=== PATIENT | female | born 1950 | race Caucasian/White ===

== ENCOUNTER → 2019-11-13 10:40 | Outpatient (BNVA) | payer MEDICARE, OTHER, SELFPAY | PROVIDERS: Family Provider Nurse Practitioner; PCP Internal Medicine; Visit Provider Nurse Practitioner | DX: M54.9 Dorsalgia, unspecified (principal); F43.21 Adjustment disorder with depressed mood; Z79.891 Long term (current) use of opiate analgesic | CPT/HCPCS: 99215 ==

== ENCOUNTER → 2020-03-05 11:13 | Outpatient (BNVA) | payer MEDICARE, OTHER, SELFPAY | PROVIDERS: Family Provider Nurse Practitioner; PCP Internal Medicine; Visit Provider Nurse Practitioner | DX: M54.41 Lumbago with sciatica, right side (principal); Z79.891 Long term (current) use of opiate analgesic | CPT/HCPCS: 99213 ==

== ENCOUNTER → 2020-05-07 10:53 | Outpatient (BNVA) | payer MEDICARE, OTHER, SELFPAY | PROVIDERS: Family Provider Nurse Practitioner; PCP Internal Medicine; Visit Provider Anesthesiology | DX: M54.41 Lumbago with sciatica, right side (principal); Z79.891 Long term (current) use of opiate analgesic | CPT/HCPCS: 99213; 99214 ==

== ENCOUNTER → 2020-07-08 10:56 | Outpatient (BNVA) | payer MEDICARE, OTHER, SELFPAY | PROVIDERS: Family Provider Nurse Practitioner; PCP Internal Medicine; Visit Provider Anesthesiology | DX: M54.5 Low back pain (principal); Z79.891 Long term (current) use of opiate analgesic | CPT/HCPCS: 99212; 99214 ==

== ENCOUNTER → 2020-09-03 09:54 | Outpatient (BNVA) | payer MEDICARE, OTHER, SELFPAY | PROVIDERS: Family Provider Nurse Practitioner; PCP Internal Medicine; Visit Provider Anesthesiology | DX: M54.41 Lumbago with sciatica, right side (principal); Z79.891 Long term (current) use of opiate analgesic | CPT/HCPCS: 99212; 99214 ==

== ENCOUNTER → 2020-12-02 10:26 | Outpatient (BNVA) | payer MEDICARE, OTHER, SELFPAY | PROVIDERS: Family Provider Nurse Practitioner; PCP Internal Medicine; Visit Provider Anesthesiology | DX: M51.36 Other intervertebral disc degeneration, lumbar region (principal); M51.34 Other intervertebral disc degeneration, thoracic region; Z79.891 Long term (current) use of opiate analgesic | CPT/HCPCS: 99213 ==

== ENCOUNTER → 2021-02-02 10:47 | Outpatient (BNVA) | payer MEDICARE, OTHER, SELFPAY | PROVIDERS: Family Provider Nurse Practitioner; PCP Internal Medicine; Visit Provider Nurse Practitioner | DX: M51.34 Other intervertebral disc degeneration, thoracic region (principal); M51.36 Other intervertebral disc degeneration, lumbar region; Z79.891 Long term (current) use of opiate analgesic | CPT/HCPCS: 99213 ==

== ENCOUNTER → 2021-04-01 10:04 | Outpatient (BNVA) | payer MEDICARE, OTHER, SELFPAY | PROVIDERS: Family Provider Nurse Practitioner; PCP Internal Medicine; Visit Provider Nurse Practitioner | DX: M51.36 Other intervertebral disc degeneration, lumbar region (principal); M51.34 Other intervertebral disc degeneration, thoracic region; Z79.891 Long term (current) use of opiate analgesic | CPT/HCPCS: 99213; 99214 ==

== ENCOUNTER → 2021-06-03 10:41 | Outpatient (BNVA) | payer MEDICARE, OTHER, SELFPAY | PROVIDERS: Family Provider Nurse Practitioner; PCP Internal Medicine; Visit Provider Anesthesiology | DX: M51.34 Other intervertebral disc degeneration, thoracic region (principal); M51.36 Other intervertebral disc degeneration, lumbar region; Z79.891 Long term (current) use of opiate analgesic | CPT/HCPCS: 99213 ==

== ENCOUNTER → 2021-06-15 10:24 | Outpatient (BNVA) | payer MEDICARE, OTHER, SELFPAY | PROVIDERS: PCP Internal Medicine; Visit Provider Family Medicine | DX: R05 Cough (principal); Z20.822 Contact with and (suspected) exposure to COVID-19 | CPT/HCPCS: 87635 ==

== ENCOUNTER → 2021-06-17 10:47 | Outpatient (BNVA) | payer MEDICARE, OTHER, SELFPAY | PROVIDERS: PCP Internal Medicine; Visit Provider Family Medicine | DX: R05 Cough (principal) | CPT/HCPCS: 71046 ==

== ENCOUNTER → 2021-06-22 11:07 | Outpatient (BNVA) | payer MEDICARE, OTHER, SELFPAY | PROVIDERS: PCP Internal Medicine; Visit Provider Nurse Practitioner Family | DX: J18.9 Pneumonia, unspecified organism (principal); B37.3 Candidiasis of vulva and vagina; A49.9 Bacterial infection, unspecified; N39.0 Urinary tract infection, site not specified | CPT/HCPCS: 81003 ==

== ENCOUNTER → 2021-06-23 11:07 | Outpatient (BNVA) | payer MEDICARE, OTHER, SELFPAY | PROVIDERS: PCP Internal Medicine; Visit Provider Nurse Practitioner Family | DX: A93.8 Other specified arthropod-borne viral fevers (principal); W57.XXXA Bitten or stung by nonvenomous insect and other nonvenomous arthropods, initial encounter | CPT/HCPCS: 86000; 86618; 86666; 86757 ==

== ENCOUNTER → 2021-07-01 14:17 | Outpatient (BNVA) | payer MEDICARE, OTHER, SELFPAY | PROVIDERS: PCP Nurse Practitioner Family; Visit Provider Nurse Practitioner Family | DX: N39.0 Urinary tract infection, site not specified (principal); A49.9 Bacterial infection, unspecified; I10 Essential (primary) hypertension; E11.9 Type 2 diabetes mellitus without complications; E53.8 Deficiency of other specified B group vitamins; E55.9 Vitamin D deficiency, unspecified; E78.2 Mixed hyperlipidemia; J30.89 Other allergic rhinitis; B37.3 Candidiasis of vulva and vagina | CPT/HCPCS: 80053; 80061; 81003; 82306; 83036; 83550; 83721; 83921; 84439; 84443; 85025; 87086 ==

== ENCOUNTER → 2021-07-30 10:39 | Outpatient (BNVA) | payer MEDICARE, OTHER, SELFPAY | PROVIDERS: PCP Internal Medicine; Visit Provider Anesthesiology | DX: G89.29 Other chronic pain (principal); M51.34 Other intervertebral disc degeneration, thoracic region; M51.36 Other intervertebral disc degeneration, lumbar region; Z79.891 Long term (current) use of opiate analgesic | CPT/HCPCS: 99213 ==

== ENCOUNTER → 2021-09-29 10:06 | Outpatient (BNVA) | payer MEDICARE, OTHER, SELFPAY | PROVIDERS: PCP Internal Medicine; Visit Provider Anesthesiology | DX: M51.34 Other intervertebral disc degeneration, thoracic region (principal); M51.36 Other intervertebral disc degeneration, lumbar region; Z79.891 Long term (current) use of opiate analgesic | CPT/HCPCS: 99213 ==

== ENCOUNTER 2022-03-09 10:29 | Outpatient (CLI) | payer MEDICARE, OTHER, SELFPAY ==
--- NOTE | 2022-03-09 10:46 | XR_ITS ---
WS: [id number] Exam: XR lumbar spine f/e only [id number] Date/Time of Exam: 03/09/2022 10:51 AM Reason For Exam: SPONDYLOLISHESIS,LUMBAR REGION No obvious fracture or dislocation. Advanced degenerative disc changes and facet arthropathy at all l evels. Marked spondylosis. No flexion or extension instability. Aortoiliac atherosclerosis. XR/XR lumbar spine f/e only [id number] IMPRESSION: 1. Advanced degenerative changes. No obvious fracture. 2. No flexion or extension instability.
== END 2022-03-09 10:30 | disposition home or self-care (01) ==
LOC: RAD 10:32
PROVIDERS: PCP Internal Medicine; Visit Provider Nurse Practitioner
DX: M43.16 Spondylolisthesis, lumbar region (principal)
CPT/HCPCS: 72120

== ENCOUNTER → 2022-12-19 16:07 | Outpatient (BNVA) | payer MEDICARE, OTHER, SELFPAY | PROVIDERS: PCP Internal Medicine; Visit Provider Nurse Practitioner | DX: A49.9 Bacterial infection, unspecified (principal); N39.0 Urinary tract infection, site not specified; E11.9 Type 2 diabetes mellitus without complications | CPT/HCPCS: 81000 ==

== ENCOUNTER → 2023-01-12 13:54 | Outpatient (BNVA) | payer MEDICARE, OTHER, SELFPAY | PROVIDERS: PCP Internal Medicine; Visit Provider Nurse Practitioner | DX: R39.9 Unspecified symptoms and signs involving the genitourinary system (principal) | CPT/HCPCS: 81000 ==

== ENCOUNTER → 2023-01-13 10:54 | Outpatient (BNVA) | payer MEDICARE, OTHER, SELFPAY | PROVIDERS: PCP Internal Medicine; Visit Provider Nurse Practitioner | DX: R39.9 Unspecified symptoms and signs involving the genitourinary system (principal) | CPT/HCPCS: 87086 ==

== ENCOUNTER 2023-03-20 21:08 | Emergency (ER) | payer MEDICARE, OTHER, SELFPAY ==
[2023-03-20 21:27] VITALS: BP 142/68; PULSE 88; RESP 16; TEMP 36.8; O2SAT 95
--- NOTE | 2023-03-20 21:50 | W.ED.SKABFB ---
HPI - Skin/Abscess/Foreign Bdy General: Chief complaint: Skin/Abscess/Foreign Body Stated complaint: Rt Leg Pain Time Seen by Provider: 03/20/23 21:43 History of Present Illness: 72-year-old female comes in today with lesion to the left lower leg. Patient reports it started as a bite approximately 2 days ago and today she noticed that it was more blistered with surrounding redness. Patient appears nontoxic. Patient is alert and oriented. Patient has a here history of diabetes mellitus, GERD, chronic pain, neuropathy, chronic lung disease. Associated symptoms: Deny vomiting Review of Systems General: Reports: 10 or more systems reviewed and unremarkable except in HPI and below Resp: Denies: dyspnea GI: Denies: vomiting Musc: Reports: extremity pain Skin/Breast: Reports: erythema PFSH ED PFSH: Medical History Acute sinusitis Anxiety Bacterial UTI DDD (degenerative disc disease), lumbar DDD (degenerative disc disease), thoracic Diabetes mellitus, type II Patient sees Dr. 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 Vaginal yeast infection Vitamin B12 deficiency (non anemic) Vitamin D deficiency Surgical History History of laparoscopy Right knee Hx of cholecystectomy Hx of tubal ligation Family History Unknown Diabetes Father Heart attack brother Sister Lung disease Social History Second hand smoke exposure: No Alcohol intake: never Desire information about alcohol rehabilitation?: No Counseling given: No Substance/Drug Use: never Desire information about substance/drug rehabilitation?: No Counseling given: No Physical Exam Const: COMMON NORMALS: alert HENMT: COMMON NORMALS: normocephalic HEAD & SCALP: normocephalic THROAT: posterior oropharynx normal Neck/C-Spine: COMMON NORMALS: full ROM Resp: COMMON NORMALS: normal respiratory effort and clear to auscultation bilaterally AUSCULTATION: clear to auscultation bilaterally Cardio: COMMON NORMALS: regular rate and regular rhythm RATE: regular rate RHYTHM: regular rhythm GI: COMMON NORMALS: non-tender Extremity: RIGHT LOWER EXTREMITY: Yes lower leg (11 cm area of redness with central 1 cm circular lesion) Neuro: SENSORIUM/ORIENTATION: Yes alert Course Vital Signs: Vital signs: Vital Signs Temperature 98.2 F 03/20/23 21:27 Pulse Rate 80 03/20/23 22:22 Respiratory Rate 18 03/20/23 22:22 Blood Pressure 171/75 03/20/23 22:22 Pulse Oximetry 93 03/20/23 22:22 Oxygen Delivery Me thod Room Air 03/20/23 21:27 MDM - Skin/Abscess/Foreign Bdy Medicial Decision Making 72-year-old female comes in today for complaints of possible infection to insect bite. On exam there is a circular lesion with a blister leaking purulent fluid to the right lower leg. Patient says lesions started 2 days ago. Patient does have significant redness surrounding the lesion approximately 10 cm. Differential diagnosis includes local reaction to insect bite, infected insect bite, cellulitis, ulcer of the varicose vein. Culture of the wound was taken and sent to lab. Patient be started on Levaquin 500 mg daily for the next 10 days. Patient was also given mupirocin ointment to apply to the lesion twice daily. Patient was recommended to follow-up with primary care in 3 to 5 days for recheck. Return to ED for worsening symptoms. Discharge Plan Discharge Patient Disposition: Home Clinical Impression: Infected lesion of skin Condition: Stable Prescriptions: New levofloxacin 500 mg tablet 500 mg PO DAILY 7 Days Qty: 7 0RF No Action diphenhydramine HCl 25 mg capsule 25 mg PO .1 day PRN aspirin 81 mg tablet,chewable 81 mg PO .1 day omeprazole 20 mg capsule,delayed release(DR/EC) 20 mg PO BID hydromorphone 8 mg tablet 8 mg PO QID PRN (Reason: pain) 30 Days Qty: 120 0RF Rx Instructions: Fill on or after 10/03/21 hydromorphone 8 mg tablet 8 mg PO QID PRN (Reason: pain) 30 Days Qty: 120 0RF Rx Instructions: fill on or after 11/02/21 ibuprofen 800 mg tablet PO TID PRN lisinopril 20 mg tablet PO DAILY metformin 500 mg tablet extended release 24 hr PO .2 bid atorvastatin 40 mg tablet PO DAILY gabapentin 600 mg tablet 600 mg PO QID cyanocobalamin (vitamin B-12) 1,000 mcg/mL solution 1,000 mcg IM .monthly fluticasone propion-salmeterol [Advair Diskus] 100-50 mcg/dose blister with device 1 inh inhalation BID Qty: 60 0RF Januvia 100 mg tablet See Rx Instructions .ROUTE .COMPLEX Qty: 30 1RF Dose Instruction: TAKE 1 TABLET BY MOUTH DAILY Rx Instructions: TAKE 1 TABLET BY MOUTH DAILY 340b sulfamethoxazole-trimethoprim [Bactrim DS] 800-160 mg tablet 1 tab PO BID 7 Days Qty: 14 0RF fluticasone propionate 50 mcg/actuation spray,suspension 2 spray intranasal DAILY PRN (Reason: allergy symptoms) Qty: 16 2RF Rx Instructions: administer into each nostril albuterol sulfate 90 mcg/actuation HFA aerosol inhaler 1 inh inhalation QID PRN (Reason: shortness of breath or wheezing) Qty: 8.5 0RF metoprolol succinate 200 mg tablet extended release 24 hr See Rx Instructions .ROUTE .COMPLEX Qty: 30 0RF Dose Instruction: Take 1 tablet by mouth once daily for 30 days Rx Instructions: Take 1 tablet by mouth once daily for 30 days fluconazole 150 mg tablet 150 mg PO Q3D Qty: 2 0RF Discharge Orders: Discharge ED (Routine); Ordered 03/20/23 Ordered By: Farhan Hong Referrals: Salty Martinez MD [Primary Care Provider] - Discharge Diet: Usual diet Discharge Activity: Increase activity as tolerated Patient Instructions: Wound Infection (ED) Activity Restrictions/Additional Instructions: Clean wound twice a day with mild soap and water. Apply mupirocin ointment after cleaning the wound twice a day. Take oral antibiotic daily for the next 7 days. Drink plenty of water with medication. Follow-up with primary care. Return to emergency department for worsening symptoms such as high fever greater than 100.4, increasing redness and swelling to the leg, or new concerns. Coding Level of Care Code ED Participant Administrator for Asim Tejada
[2023-03-20] MEDS: levoFLOXacin 500 mg Tablet PO ×2 (22:19)
[2023-03-20] MEDS: mupirocin oint 22 gm 1 APPLIC TOPICAL (22:19)
[2023-03-20 22:22] VITALS: BP 171/75; PULSE 80; RESP 18; O2SAT 93
== END 2023-03-20 22:29 | disposition home or self-care (01) ==
PROVIDERS: Emergency Provider Nurse Practitioner Family; PCP Internal Medicine
DX: L98.9 Disorder of the skin and subcutaneous tissue, unspecified (principal)
CPT/HCPCS: 99283

== ENCOUNTER → 2023-08-24 09:47 | Outpatient (BNVA) | payer MEDICARE, OTHER, SELFPAY | PROVIDERS: PCP Internal Medicine; Visit Provider Nurse Practitioner Family | DX: R68.89 Other general symptoms and signs (principal); J06.9 Acute upper respiratory infection, unspecified | CPT/HCPCS: 87400; 87426 ==

== ENCOUNTER → 2023-09-08 11:36 | Outpatient (BNVA) | payer MEDICARE, OTHER, SELFPAY | PROVIDERS: PCP Internal Medicine; Visit Provider Nurse Practitioner Family | DX: L02.415 Cutaneous abscess of right lower limb (principal) | CPT/HCPCS: 87070; 87075; 87077; 87184; 87205 ==

== ENCOUNTER → 2023-10-20 10:31 | Outpatient (BNVA) | payer MEDICARE, OTHER, SELFPAY | PROVIDERS: PCP Nurse Practitioner Family; Visit Provider Nurse Practitioner Family | DX: R06.2 Wheezing (principal); J11.1 Influenza due to unidentified influenza virus with other respiratory manifestations; J22 Unspecified acute lower respiratory infection; I51.7 Cardiomegaly | CPT/HCPCS: 71046 ==

== ENCOUNTER 2023-10-20 12:25 | Emergency (ER) | payer MEDICARE, OTHER, SELFPAY ==
--- NOTE | 2023-10-20 12:28 | ECG_ITS ---
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 Measurements Intervals [place] Rate: 83 P: 61 [place]: 132 QRS: 12 QRSD: 93 T: 63 QT: 352 QTc: 414 Interpretive Statements SINUS RHYTHM Compared to ECG 02/22/2019 13:09:19 No significant changes Electronically Signed On 10-21-2023 23:14:10 LABORATORY ENGINEER by Justin Mena M.D. [email or web address]
[2023-10-20 12:38] VITALS: BP 134/79; PULSE 80; RESP 17; TEMP 37; O2SAT 94
--- NOTE | 2023-10-20 14:04 | ED_ITS ---
Documented by User: Meme Nguyen PA-C 10/20/23 14:56 HPI - URI/Sore Throat 2 General: Chief Complaint: Upper Respiratory Infection Stated Complaint: SOB sent by dr mcintyre Time Seen by Provider: 10/20/23 13:35 Source: patient and family Mode of arrival: ambulatory Limitations: no limitations History of Present Illness: 72-year-old female presents to the ER to day for possible pneumonia. Patient reports she was on a cruise and came home on Monday. She started feeling poorly on Monday and was seen Monday by her PCP. Patient was diagnosed with influenza at that time. Patient reports she was given a steroid shot and also started on Tamiflu. Patient reports she continued to feel worse and went back to her PCP today. They did a chest x-ray and told patient she might have pneumonia and should go to the ER for treatment. Patient reports she does have increased shortness of breath that is worse with ambulation and exertion. She denies any chest pain. She reports her cough is productive with a thick sputum. She denies any fevers. She reports she did have some bodyaches but those have improved. Patient reports other than the Tamiflu she is not taking anything [id number] for her symptoms. Patient denies any history of COPD. Patient does not take any inhalers regularly. 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 Martinez for health issues, and labs Cellulitis, wound, post-operative Encounter for long-term opiate analgesic use Low back pain of over 3 months duration Opioid contract exists Essential hypertension Anxiety Surgical History Hx of cholecystectomy Hx of tubal ligation History of laparoscopy Right knee Family History Unknown Diabetes Father Heart attack brother Sister Lung disease Social History Second hand smoke exposure: No Alcohol intake: never Substance/Drug Use: never Physical Exam 2 Const: COMMON NORMALS: average body habitus, patient oriented x3, no limitations, healthy appearing, alert and well nourished HENMT: COMMON NORMALS: normocephalic, atraumatic, TM's normal bilaterally and moist oral mucous membranes HEAD & SCALP: normocephalic and atraumatic N OSE: Abnormal mucous membranes and turbinates present erythematous TYMPANIC MEMBRANE: TM's normal bilaterally Eye: COMMON NORMALS: conjunctivae normal CONJUNCTIVA: Yes conjunctivae normal Neck/C-Spine: COMMON NORMALS: full ROM and no lymphadenopathy Resp: COMMON NORMALS: normal respiratory effort, No retractions and clear to auscultation bilaterally EFFORT & INSPECTION: Yes able to speak in complete sentences AUSCULTATION: clear to auscultation bilaterally OTHER: Productive cough noted Cardio: COMMON NORMALS: regular rate, regular rhythm and No murmurs present (Cardio) RATE: regular rate RHYTHM: regular rhythm GI: COMMON NORMALS: Normal to inspection, nondistended, normoactive bowel sounds present, Soft to palpation and non-tender PALPATION: Yes Soft to palpation Extremity: COMMON NORMALS: normal to inspection, full ROM and no pedal edema Neuro: COMMON NORMALS: patient oriented x3 SENSORIUM/ORIENTATION: Yes alert Psych: COMMON NORMALS: mental status grossly normal, Normal thought process present and cooperative THOUGHT PROCESS: Normal thought process present Skin: COMMON NORMALS: no rashes or lesions noted and no wounds GENERAL SKIN EXAM: no rashes or lesions noted Course 2 ED course: Patient presents to the ER for possible pneumonia. Diagnosed with influenza on Monday. Patient started on Tamiflu at that time in addition to given a steroid. Patient had chest x-ray earlier today which does not indicate any consolidations or effusions. On exam in the ER, patient's lung sounds are clear. No rhonchi, rales, or wheezes noted. Patient not in any acute distress. Blood pressure slightly elevated however oxygen saturation ranging between 93 and 96%. This is while patient is at rest and she does report that with ambulation she does drop some. Patient able to speak in complete sentences. We will go ahead and get some lab work at this time. Vital Signs: Vital signs: Vital Signs Temperature 98.6 F 10/20/23 12:38 Pulse Rate 81 10/20/23 15:02 Respiratory Rate 17 10/20/23 12:38 Blood Pressure 136/93 10/20/23 15:02 Pulse Oximetry 94 10/20/23 15:02 Oxygen Delivery Me thod Room Air 10/20/23 14:53 MDM - URI/Sore Throat Medical Decision Making Chest x-ray done today does not indicate any consolidations or effusions. Patient is on day 5 influenza A. Patient's lung sounds are clear in the ER. Her oxygen saturation remained stable at 94 to 96% while here. Patient is in no acute distress. White count is slightly bumped likely due to the influenza. Bilirubin also slightly bumped however all other labs appear pretty normal. Discussed findings with patient. Will go and started on azithromycin given worsening of symptoms however I did discuss with her that likely she is just now peaking with the influenza. We discussed that it can last 10 to 14 days. Cough can even linger up to 2 weeks. We will go ahead and send patient home with Mucinex to help prevent any type of pneumonia. Patient should rest and avoid any exertion and minimal ambulation. Push fluids. Follow-up with PCP in 1 week. Return to the ER with new or worsening symptoms. Patient verbalized understanding and was in agreement with the treatment plan. Lab Data 10/20/23 14:06 10/20/23 14:06 Laboratory Results WBC 12.61 10^3/uL (3.29-11.43) H 10/20/23 14:06 RBC 5.17 10^6/uL (3.85-5.65) 10/20/23 14:06 Hgb 13.60 g/dL (11.27-16.99) 10/20/23 14:06 Hct 42.4 % (36-47) 10/20/23 14:06 MCV 82.0 fl (85-98) L 10/20/23 14:06 MCH 26.3 pg (27-33) L 10/20/23 14:06 MCHC 32.1 g/dL (30-55) 10/20/23 14:06 RDW 13.6 % (12.1-15.1) 10/20/23 14:06 Plt Count 262 10^3/cmm (157-399) 10/20/23 14:06 MPV 9.9 fL (7.4-10.4) 10/20/23 14:06 Neut % (Auto) 63.9 % 10/20/23 14:06 Lymph % (Auto) 24.3 % 10/20/23 14:06 Sebastian % (Auto) 9.1 % 10/20/23 14:06 Eos % (Auto) 0.3 % 10/20/23 14:06 Baso % (Auto) 0.4 % 10/20/23 14:06 Neut # (Auto) 8.05 10^3/uL (1.8-7.7) H 10/20/23 14:06 Lymph # (Auto) 3.1 10^3/uL (0.8-4.8) 10/20/23 14:06 Sebastian # (Auto) 1.2 10^3/uL (0.2-0.9) H 10/20/23 14:06 Eos # (Auto) 0.0 10^3/uL (0.0-0.8) 10/20/23 14:06 Baso # (Auto) 0.1 10^3/uL (0.0-0.1) 10/20/23 14:06 Nucleated RBC % (auto) 0 % 10/20/23 14:06 Nucleated RBCs # 0.0 /100WBC 10/20/23 14:06 Sodium 140 mmol/L (136-145) 10/20/23 14:06 Potassium 3.9 mmol/L (3.5-5.1) 10/20/23 14:06 Chloride 103 mmol/L (98-107) 10/20/23 14:06 Carbon Dioxide 23 mmol/L (22-29) 10/20/23 14:06 Anion Gap 17.9 (5-19) 10/20/23 14:06 BUN 9 mg/dL (8-23) 10/20/23 14:06 Creatinine 0.6 mg/dL (0.5-0.9) 10/20/23 14:06 GFR Calculation Not Reportable 10/20/23 14:06 Glucose 163 mg/dL (65-115) H 10/20/23 14:06 Calculated Osmolality 292 mOsm/kg (285-295) 10/20/23 14:06 Calcium 9.0 mg/dL (8.5-10.5) 10/20/23 14:06 Total Bilirubin 1.5 mg/dL (0.15-1.2) H 10/20/23 14:06 AST 18 U/L (0-32) 10/20/23 14:06 ALT 26 U/L (0-33) 10/20/23 14:06 Alkaline Phosphatase 59 U/L (35-105) 10/20/23 14:06 Total Protein 6.9 g/dL (6.6-8.7) 10/20/23 14:06 Albumin 3.3 g/dL (3.5-5.2) L 10/20/23 14:06 Globulin 3.6 g/dL (1.3-4.6) 10/20/23 14:06 Influenza Type A Ag negative (Negative) 10/20/23 14:05 Influenza Type B Ag negative (Negative) 10/20/23 14:05 SARS-CoV-2 Ag (Rapid) Negative (Negative) 10/20/23 14:05 All radiology interpretation(s) finalized by discharge Critical Care Time 2 Critical Care Time: Critical Care Time: No Discharge Plan Discharge Patient Disposition: Home Clinical Impression: Influenza A Condition: Stable Prescriptions: New Mucinex 600 mg tablet extended release 12hr 600 mg PO Q12H PRN (Reason: congestion/cough) 10 Days Qty: 20 0RF Zithromax Z-Kory 250 mg tablet See Rx Instructions PO .COMPLEX Qty: 6 0RF Rx Instructions: For 250 mg dose pack: take 500 mg today (day 1), then 250 mg for 4 days (days 2-5) No Action ibuprofen 800 mg tablet 800 mg PO TID PRN (Reason: Pain) lisinopril 20 mg tablet 20 mg PO QAM atorvastatin 40 mg tablet 40 mg PO QPM cyanocobalamin (vitamin B-12) 1,000 mcg/mL solution 1,000 mcg IM .monthly fluconazole 150 mg tablet 150 mg PO Q3D PRN (Reason: yeast) 7 Days Qty: 3 1RF oseltamivir [Tamiflu] 75 mg capsule 75 mg PO BID 5 Days Qty: 10 0RF ondansetron HCl 4 mg tablet 4 mg PO Q8H PRN (Reason: nausea and vomiting) 5 Days Qty: 20 0RF albuterol sulfate 2.5 mg /3 mL (0.083 %) solution for nebulization 2.5 mg INHALATION Q6H PRN (Reason: shortness of breath or wheezing) Qty: 180 5RF albuterol sulfate 90 mcg/actuation HFA aerosol inhaler 1 inh inhalation QID PRN (Reason: shortness of breath or wheezing) Qty: 8.5 0RF hydromorphone 4 mg tablet 4 mg PO QID PRN (Reason: Pain) gabapentin 100 mg capsule 100 mg PO DAILY metoprolol succinate 200 mg tablet extended release 24 hr 200 mg PO QPM alprazolam 1 mg tablet 1 mg PO DAILY PRN (Reason: Anxiety) glimepiride 2 mg tablet 2 mg PO BID levothyroxine 25 mcg tablet 25 mcg PO DAILY omeprazole 20 mg capsule,delayed release(DR/EC) 20 mg PO BID mupirocin 2 % ointment 1 applic TOPICAL BID furosemide 20 mg tablet 20 mg PO BID Janumet XR 50-1,000 mg tablet, ER multiphase 24 hr 1 tab PO BID Discharge Orders: Discharge ED (Routine); Ordered 10/20/23 Ordered By: Meme Nguyen Referrals: CHANDNI Mcintyre, [employer] [Primary Care Provider] - Discharge Diet: Usual diet Discharge Activity: Resume usual activity Patient Instructions: Opioid Safety, Pain Management Activity Restrictions/Additional Instructions: Push fluids. Take azithromycin as prescribed. Take Mucinex as prescribed. Rest recommended. Follow-up with PCP in 5 to 7 days. Return to the ER with any new or worsening symptoms. 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 Documented by User: Sabino Hays DO 10/20/23 17:21 HPI - URI/Sore Throat 2 General: Chief Complaint: Upper Respiratory Infection Stated Complaint: SOB sent by dr mcintyre Time Seen by Provider: 10/20/23 13:35 PFSH ED 2 PFSH: Medical History Lower respiratory infection Wheezing MRSA (methicillin resistant staph aureus) culture positive COVID-19 Acute sinusitis Environmental and seasonal allergies Bacterial UTI Vaginal yeast infection Pneumonia Vitamin B12 deficiency (non anemic) Skin lesion of left arm Freitas-Baraitser syndrome DDD (degenerative disc disease), thoracic DDD (degenerative disc disease), lumbar Vitamin D deficiency Mixed hyperlipidemia Squamous cell cancer of skin of right forearm Diabetes mellitus, type II Patient sees Dr. Martinez for health issues, and labs Cellulitis, wound, post-operative Encounter for long-term opiate analgesic use Low back pain of over 3 months duration Opioid contract exists Essential hypertension Anxiety Surgical History Hx of cholecystectomy Hx of tubal ligation History of laparoscopy Right knee Family History Unknown Diabetes Father Heart attack brother Sister Lung disease Social History Second hand smoke exposure: No Alcohol intake: never Substance/Drug Use: never Course 2 Vital Signs: Vital signs: Vital Signs Temperature 98.6 F 10/20/23 12:38 Pulse Rate 81 10/20/23 15:02 Respiratory Rate 17 10/20/23 12:38 Blood Pressure 136/93 10/20/23 15:02 Pulse Oximetry 94 10/20/23 15:02 Oxygen Delivery Me thod Room Air 10/20/23 14:53 MDM - URI/Sore Throat Medical Decision Making Chest x-ray done today does not indicate any consolidations or effusions. Patient is on day 5/6 influenza A. Patient's lung sounds are clear in the ER. Her oxygen saturation remained stable at 94 to 96% while here. Patient is in no acute distress. White count is slightly bumped likely due to the influenza. Bilirubin also slightly bumped however all other labs appear pretty normal. Discussed findings with patient. Will go and started on azithromycin given worsening of symptoms however I did discuss with her that likely she is just now peaking with the influenza. We discussed that it can last 10 to 14 days. Cough can even linger up to 2 weeks. We will go ahead and send patient home with Mucinex to help prevent any type of pneumonia. Patient should rest and avoid any exertion and minimal ambulation. Push fluids. Follow-up with PCP in 1 week. Return to the ER with new or worsening symptoms. Patient verbalized understanding and was in agreement with the treatment plan. Chart reviewed and patient discussed with midlevel. Agree with assessment and plan. Lab Data 10/20/23 14:06 10/20/23 14:06 Laboratory Results WBC 12.61 10^3/uL (3.29-11.43) H 10/20/23 14:06 RBC 5.17 10^6/uL (3.85-5.65) 10/20/23 14:06 Hgb 13.60 g/dL (11.27-16.99) 10/20/23 14:06 Hct 42.4 % (36-47) 10/20/23 14:06 MCV 82.0 fl (85-98) L 10/20/23 14:06 MCH 26.3 pg (27-33) L 10/20/23 14:06 MCHC 32.1 g/dL (30-55) 10/20/23 14:06 RDW 13.6 % (12.1-15.1) 10/20/23 14:06 Plt Count 262 10^3/cmm (157-399) 10/20/23 14:06 MPV 9.9 fL (7.4-10.4) 10/20/23 14:06 Neut % (Auto) 63.9 % 10/20/23 14:06 Lymph % (Auto) 24.3 % 10/20/23 14:06 Sebastian % (Auto) 9.1 % 10/20/23 14:06 Eos % (Auto) 0.3 % 10/20/23 14:06 Baso % (Auto) 0.4 % 10/20/23 14:06 Neut # (Auto) 8.05 10^3/uL (1.8-7.7) H 10/20/23 14:06 Lymph # (Auto) 3.1 10^3/uL (0.8-4.8) 10/20/23 14:06 Sebastian # (Auto) 1.2 10^3/uL (0.2-0.9) H 10/20/23 14:06 Eos # (Auto) 0.0 10^3/uL (0.0-0.8) 10/20/23 14:06 Baso # (Auto) 0.1 10^3/uL (0.0-0.1) 10/20/23 14:06 Nucleated RBC % (auto) 0 % 10/20/23 14:06 Nucleated RBCs # 0.0 /100WBC 10/20/23 14:06 Sodium 140 mmol/L (136-145) 10/20/23 14:06 Potassium 3.9 mmol/L (3.5-5.1) 10/20/23 14:06 Chloride 103 mmol/L (98-107) 10/20/23 14:06 Carbon Dioxide 23 mmol/L (22-29) 10/20/23 14:06 Anion Gap 17.9 (5-19) 10/20/23 14:06 BUN 9 mg/dL (8-23) 10/20/23 14:06 Creatinine 0.6 mg/dL (0.5-0.9) 10/20/23 14:06 GFR Calculation Not Reportable 10/20/23 14:06 Glucose 163 mg/dL (65-115) H 10/20/23 14:06 Calculated Osmolality 292 mOsm/kg (285-295) 10/20/23 14:06 Calcium 9.0 mg/dL (8.5-10.5) 10/20/23 14:06 Total Bilirubin 1.5 mg/dL (0.15-1.2) H 10/20/23 14:06 AST 18 U/L (0-32) 10/20/23 14:06 ALT 26 U/L (0-33) 10/20/23 14:06 Alkaline Phosphatase 59 U/L (35-105) 10/20/23 14:06 Total Protein 6.9 g/dL (6.6-8.7) 10/20/23 14:06 Albumin 3.3 g/dL (3.5-5.2) L 10/20/23 14:06 Globulin 3.6 g/dL (1.3-4.6) 10/20/23 14:06 Influenza Type A Ag negative (Negative) 10/20/23 14:05 Influenza Type B Ag negative (Negative) 10/20/23 14:05 SARS-CoV-2 Ag (Rapid) Negative (Negative) 10/20/23 14:05 Discharge Plan Discharge Patient Disposition: Home Clinical Impression: Influenza A Condition: Stable Prescriptions: New Mucinex 600 mg tablet extended release 12hr 600 mg PO Q12H PRN (Reason: congestion/cough) 10 Days Qty: 20 0RF Zithromax Z-Kory 250 mg tablet See Rx Instructions PO .COMPLEX Qty: 6 0RF Rx Instructions: For 250 mg dose pack: take 500 mg today (day 1), then 250 mg for 4 days (days 2-5) No Action ibuprofen 800 mg tablet 800 mg PO TID PRN (Reason: Pain) lisinopril 20 mg tablet 20 mg PO QAM atorvastatin 40 mg tablet 40 mg PO QPM cyanocobalamin (vitamin B-12) 1,000 mcg/mL solution 1,000 mcg IM .monthly fluconazole 150 mg tablet 150 mg PO Q3D PRN (Reason: yeast) 7 Days Qty: 3 1RF oseltamivir [Tamiflu] 75 mg capsule 75 mg PO BID 5 Days Qty: 10 0RF ondansetron HCl 4 mg tablet 4 mg PO Q8H PRN (Reason: nausea and vomiting) 5 Days Qty: 20 0RF albuterol sulfate 2.5 mg /3 mL (0.083 %) solution for nebulization 2.5 mg INHALATION Q6H PRN (Reason: shortness of breath or wheezing) Qty: 180 5RF albuterol sulfate 90 mcg/actuation HFA aerosol inhaler 1 inh inhalation QID PRN (Reason: shortness of breath or wheezing) Qty: 8.5 0RF hydromorphone 4 mg tablet 4 mg PO QID PRN (Reason: Pain) gabapentin 100 mg capsule 100 mg PO DAILY metoprolol succinate 200 mg tablet extended release 24 hr 200 mg PO QPM alprazolam 1 mg tablet 1 mg PO DAILY PRN (Reason: Anxiety) glimepiride 2 mg tablet 2 mg PO BID levothyroxine 25 mcg tablet 25 mcg PO DAILY omeprazole 20 mg capsule,delayed release(DR/EC) 20 mg PO BID mupirocin 2 % ointment 1 applic TOPICAL BID furosemide 20 mg tablet 20 mg PO BID Janumet XR 50-1,000 mg tablet, ER multiphase 24 hr 1 tab PO BID Discharge Orders: Discharge ED (Routine); Ordered 10/20/23 Ordered By: Meme Nguyen Referrals: CHANDNI Mcintyre, [employer] [Primary Care Provider] - Discharge Diet: Usual diet Discharge Activity: Resume usual activity Patient Instructions: Opioid Safety, Pain Management Activity Restrictions/Additional Instructions: Push fluids. Take azithromycin as prescribed. Take Mucinex as prescribed. Rest recommended. Follow-up with PCP in 5 to 7 days. Return to the ER with any new or worsening symptoms. 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
[2023-10-20 14:17] LABS: Basophils # 0.1 10^3/uL (0.0-0.1); Basophils % 0.4 %; Eosinophils % 0.3 %; Hematocrit 42.4 % (36-47); Lymphocytes # 3.1 10^3/uL (0.8-4.8); Lymphocytes % 24.3 %; Mean Corpuscular HGB Conc 32.1 g/dL (30-55); Mean Corpuscular Hemoglobin 26.3 pg (27-33); Mean Platelet Volume 9.9 fL (7.4-10.4); Monocytes # 1.2 10^3/uL (0.2-0.9); Monocytes % 9.1 %; Neutrophils # 8.05 10^3/uL (1.8-7.7); Neutrophils % 63.9 %; Nucleated Red Blood Cells % 0 %; Platelet Count 262 10^3/cmm (157-399); Red Blood Count 5.17 10^6/uL (3.85-5.65); Red Cell Distribution Width 13.6 % (12.1-15.1); White Blood Count 12.61 10^3/uL (3.29-11.43)
[2023-10-20 14:43] LABS: Alanine Aminotransferase 26 U/L (0-33); Albumin Level 3.3 g/dL (3.5-5.2); Alkaline Phosphatase 59 U/L (35-105); Anion Gap 17.9 (5-19); Aspartate Amino Transferase 18 U/L (0-32); Blood Urea Nitrogen 9 mg/dL (8-23); Carbon Dioxide 23 mmol/L (22-29); Chloride 103 mmol/L (98-107); Creatinine Clr Calc Pharmacy 72.9886; Globulin 3.6 g/dL (1.3-4.6); Glucose 163 mg/dL (65-115); Osmolality Calculated 292 mOsm/kg (285-295); Potassium 3.9 mmol/L (3.5-5.1); Sodium 140 mmol/L (136-145); Total Bilirubin 1.5 mg/dL (0.15-1.2); Total Protein 6.9 g/dL (6.6-8.7)
[2023-10-20 14:52] LABS: Influenza A by IFA negative (Negative); Influenza B by IFA negative (Negative)
[2023-10-20 14:53] VITALS: BP 181/89; PULSE 93; O2SAT 93
[2023-10-20 15:02] VITALS: BP 136/93; PULSE 81; O2SAT 94
[2023-10-20 15:12] LABS: SARS Covid-2 Antigen Negative (Negative)
== END 2023-10-20 15:04 | disposition home or self-care (01) ==
PROVIDERS: Family Medicine; Emergency Provider Physician Assistant; PCP Nurse Practitioner Family
DX: J10.1 Influenza due to other identified influenza virus with other respiratory manifestations (principal); Z79.84 Long term (current) use of oral hypoglycemic drugs; Z11.52 Encounter for screening for COVID-19; E78.2 Mixed hyperlipidemia; E11.9 Type 2 diabetes mellitus without complications; I10 Essential (primary) hypertension; R06.2 Wheezing; J11.1 Influenza due to unidentified influenza virus with other respiratory manifestations; J22 Unspecified acute lower respiratory infection; I51.7 Cardiomegaly
CPT/HCPCS: 36415; 71046; 80053; 85025; 87426; 87804; 93005; 99284

== ENCOUNTER 2024-03-12 09:40 | Outpatient (CLI) | payer MEDICARE, OTHER, SELFPAY ==
--- NOTE | 2024-03-12 09:51 | USCV_ITS ---
Lena Erazo Age: 73 Gender: F : 1950 Exam Date: 03/12/2024 09:57 Ordering Phys: Sabi Ta MD Technologist: ASHLEY [place] [facility] [place]: HTN, DM TYPE 2, STRONG FAMILY HISTORY BP: / HR: 61 Rhythm: Sinus Technical Quality: Adequate MEASUREMENTS (Male / Female) Normal Values 2D ECHO LV Diastolic Diameter PLAX 4.1 cm 4.2 - 5.9 / 3.9 - 5.3 cm LV Systolic Diameter PLAX 4.1 cm IVS Diastolic Thickness 1.3 cm 0.6 - 1.0 / 0.6 - 0.9 cm IVS Systolic Thickness 1.3 cm LVPW Diastolic Thickness 1.4 cm 0.6 - 1.0 / 0.6 - 0.9 cm LVPW Systolic Thickness 1.5 cm LVOT Diameter 2.0 cm LV Ejection Fraction 2D Teich 0.5 % LV Ejection Fraction MOD 2C 48.8 % LV Ejection Fraction 2C AL 53.2 % LA Diameter 3.4 cm RA Systolic Volume 4C AL 28.4 ml RA Systolic Volume 4C MOD 26.6 ml LA Sys Volume AL 25.9 cm cubed LA Sys Volume Index AL 11.8 cm cubed/m squared Aorta at Sinotubular Diameter 3.5 cm IVC Diameter 1.8 cm M-MODE LA Ao Ratio MM 1.8 AV Cusp Separation MM 1.6 cm DOPPLER AV Peak Velocity 112.0 cm/s LVOT Peak Velocity 99.0 cm/s AV Area Cont Eq vti 3.6 cm squared AV Area Cont Eq pk 2.8 cm squared MV Area PHT 2.8 cm squared Mitral E to A Ratio 0.8 TV Peak Velocity 112.3 cm/s TR Peak Velocity 120.5 cm/s TR Peak Gradient 5.8 mmHg TR Mean Velocity 194.0 cm/s TR Mean Gradient 16.3 mmHg TR Velocity Time Integral 85.4 cm TV Peak E Velocity 54.0 cm/s Right Atrial Pressure 33.0 mmHg Pulmonary Artery Systolic Pressu 38.8 mmHg PV Peak Velocity 116.0 cm/s FINDINGS Left Ventricle Moderate concentric left-ventricular hypertrophy with normal ejection fraction of 65%, visual. Right Ventricle Normal right ventricular size and systolic function. Right Atrium Normal right atrial size. Left Atrium Mildly increased left atrial size. Mitral Valve Mild mitral annular calcification. Aortic Valve Trace aortic valve regurgitation. Tricuspid Valve No gross abnormalities noted Pulmonic Valve Pulmonic valve not well visualized. Pericardium No pericardial effusion. Echo-free space anteriorly, suggestive of pericardial fat pad Aorta Normal aortic annulus size. IVC Inferior vena cava not visualized. CONCLUSIONS Moderate concentric left-ventricular hypertrophy with normal ejection fraction of 65%, (visual.) Mildly increased left atrial size. Mild mitral annular calcification. Trace aortic valve regurgitation. No pericardial effusion. Echo-free space anteriorly, suggestive of pericardial fat pad. There is no pericardial effusion. Dr Kalpesh Ramos MD FACC (Electronically Signed) Final Date: 14 March 2024 21:48 S
== END 2024-03-12 09:41 | disposition home or self-care (01) ==
PROVIDERS: PCP Nurse Practitioner Family; Visit Provider Internal Medicine Interventional Cardiology
DX: R94.31 Abnormal electrocardiogram [ECG] [EKG] (principal); I51.7 Cardiomegaly; I10 Essential (primary) hypertension; E78.5 Hyperlipidemia, unspecified; E11.9 Type 2 diabetes mellitus without complications
CPT/HCPCS: 93306

== ENCOUNTER → 2024-07-31 11:17 | Outpatient (BNVA) | payer MEDICARE, OTHER, SELFPAY | PROVIDERS: PCP Nurse Practitioner Family; Visit Provider Nurse Practitioner Family | DX: N39.0 Urinary tract infection, site not specified (principal) | CPT/HCPCS: 81000 ==

== ENCOUNTER → 2024-10-04 10:19 | Outpatient (BNVA) | payer MEDICARE, OTHER, SELFPAY | PROVIDERS: PCP Nurse Practitioner Family; Visit Provider Nurse Practitioner Family | DX: R39.9 Unspecified symptoms and signs involving the genitourinary system (principal); N39.0 Urinary tract infection, site not specified; A49.9 Bacterial infection, unspecified; B37.31 Acute candidiasis of vulva and vagina | CPT/HCPCS: 81000 ==

== ENCOUNTER → 2024-12-01 18:14 | Outpatient (BNVA) | payer MEDICARE, OTHER, SELFPAY | PROVIDERS: PCP Nurse Practitioner Family; Visit Provider Registered Nurse Neonatal Intensive Care | DX: R39.9 Unspecified symptoms and signs involving the genitourinary system (principal); R52 Pain, unspecified | CPT/HCPCS: 81000; 87086 ==

== ENCOUNTER → 2025-04-01 08:38 | Outpatient (BNVA) | payer MEDICARE, OTHER, SELFPAY | PROVIDERS: PCP Nurse Practitioner Family; Visit Provider Nurse Practitioner Family | DX: E55.9 Vitamin D deficiency, unspecified (principal); I10 Essential (primary) hypertension; E78.2 Mixed hyperlipidemia; E11.9 Type 2 diabetes mellitus without complications; E53.8 Deficiency of other specified B group vitamins; F43.21 Adjustment disorder with depressed mood; F41.9 Anxiety disorder, unspecified | CPT/HCPCS: 80053; 80061; 81003; 82306; 82607; 82728; 83036; 83550; 83921; 84443; 85025 ==

== ENCOUNTER → 2025-04-11 08:58 | Outpatient (BNVA) | payer MEDICARE, OTHER, SELFPAY | PROVIDERS: PCP Nurse Practitioner Family; Visit Provider Nurse Practitioner Family | DX: R79.89 Other specified abnormal findings of blood chemistry (principal) | CPT/HCPCS: 80053 ==

== ENCOUNTER 2025-04-29 09:41 | Outpatient (CLI) | payer MEDICARE, OTHER, SELFPAY ==
--- NOTE | 2025-04-29 09:40 | MM_ITS ---
WS: [id number] BILATERAL 3D TOMOSYNTHESIS DIGITAL SCREENING MAMMOGRAPHY WITH CAD CLINICAL INFORMATION: Z12.31 - Encounter for screening mammogram for malignant ... HISTORY: Screening mammogram. No current complaints. COMPARISON: 2023 TECHNIQUE: Bilateral CC and MLO views. FINDINGS: Scattered fibroglandular densities bilaterally. No suspicious focal mass, asymmetry, calcifications, or architectural distortion. No evidence of malignancy. Vascular calcification. Incidental punctate calcifications. MM/MM [facility] tomosynthesis [id number] IMPRESSION: DENSITY: There are scattered areas of fibroglandular density. BI-RADS: 2 - Benign. FOLLOW UP: 1 Year Follow-up Recommend return to annual screening mammography.
== END 2025-04-29 09:42 | disposition home or self-care (01) ==
LOC: MOBLMAM 09:45
PROVIDERS: PCP Nurse Practitioner Family; Visit Provider Nurse Practitioner Family
DX: Z12.31 Encounter for screening mammogram for malignant neoplasm of breast (principal); R92.323 Mammographic fibroglandular density, bilateral breasts; R92.1 Mammographic calcification found on diagnostic imaging of breast
CPT/HCPCS: 77063; 77067

== ENCOUNTER → 2025-07-17 10:10 | Outpatient (BNVA) | payer MEDICARE, OTHER, SELFPAY | PROVIDERS: PCP Nurse Practitioner Family; Visit Provider Nurse Practitioner Family | DX: E55.9 Vitamin D deficiency, unspecified (principal); I10 Essential (primary) hypertension; E11.9 Type 2 diabetes mellitus without complications; E78.2 Mixed hyperlipidemia; E53.8 Deficiency of other specified B group vitamins; N39.0 Urinary tract infection, site not specified; A49.9 Bacterial infection, unspecified; M54.50 Low back pain, unspecified; Z01.89 Encounter for other specified special examinations; F41.9 Anxiety disorder, unspecified; Z12.11 Encounter for screening for malignant neoplasm of colon | CPT/HCPCS: 80053; 80061; 81003; 82306; 82607; 82728; 82746; 83036; 83550; 83735; 84439; 84443; 85025; 86038; 87086 ==